=== PATIENT | female | born 1965 ===

== ENCOUNTER 2016-08-17 11:12 | Emergency (ER) | payer MEDICARE, MEDICAID ==
[2016-08-17 11:12] VITALS: BMI 30.2
[2016-08-17 11:18] VITALS: BP 127/84; PULSE 107; RESP 18; TEMP 98.2; O2SAT 100
--- NOTE | 2016-08-17 12:06 | C.PDOC ---
History Of Present Illness 51-year-old female, presents to the emergency department with complaints of left foot pain and swelling just prior to arrival, due to something heavy falling on it. no numbness/weakness Time Seen by Provider: 08/17/16 11:32 Chief Complaint (Nursing): Lower Extremity Problem/Injury History Per: Patient History/Exam Limitations: no limitations Past Medical History Reviewed: Historical Data, Nursing Documentation, Vital Signs Vital Signs: Last Vital Signs Temp 98.2 F 08/17/16 11:15 Pulse 107 H 08/17/16 11:15 Resp 18 08/17/16 11:15 BP 127/84 08/17/16 11:15 Pulse Ox 100 08/17/16 12:12 - Medical History PMH: Anemia, Anxiety, Back Problems, Bipolar Disorder, Depression, Hypercholesterolemia, Post Traumatic Stress Disorder - [facility] Procedures ANESTH INJECT-SPIN CANAL (05/28/13) INJECT STEROID (05/28/13) LUMBOSAC SPINE X-RAY NEC (01/01/13) PHYSICAL THERAPY NEC (12/05/14) SPINAL CANAL INJECT NEC (05/28/13) Family History: States: No Known Family Hx, Diabetes - Social History Hx Tobacco Use: Yes Hx Alcohol Use: No Hx Substance Use: No - Immunization History Hx Tetanus Toxoid Vaccination: No Hx Influenza Vaccination: Yes Hx Pneumococcal Vaccination: No Review Of Systems Except As Marked, All Systems Reviewed And Found Negative. Gastrointestinal: Negative for: Vomiting Musculoskeletal: Positive for: Foot Pain Neurological: Negative for: Weakness, Numbness Physical Exam - Physical Exam Appears: Non-toxic, No Acute Distress Skin: Warm, Dry, No Rash Extremity: Normal ROM, Tenderness, No Calf Tenderness, Capillary Refill (<2 seconds), No Deformity, Swelling, Other (swelling and echymosis to dorsal aspect of left foot) Neurological/Psych: Oriented x3 ED Course And Treatment O2 Sat by Pulse Oximetry: 100 - Other Rad l foot X-Ray: Interpreted by Me (neg) Medical Decision Making Medical Decision Making: Pt given crutches and dc for outpatient f/u with ortho Disposition Counseled Patient/Family Regarding: Studies Performed, Diagnosis, Need For Followup, Rx Given - Disposition Referrals: [facility] [Outside] [facility] at [facility] [Outside] Podiatry Clinic [Outside] Disposition: HOME/ ROUTINE Disposition Time: 12:11 Condition: IMPROVED Prescriptions: Acetaminophen [Tylenol Extra Strength] 2 tab PO Q6 #30 tablet Naproxen 500 mg PO BID #30 tab Instructions: Contusion in Adults (ED) - Clinical Impression Clinical Impression: Foot contusion - Scribe Statement The provider has reviewed the documentation as recorded by the Scribe Provider Attestation: Irma Zabala All medical record entries made by the Scribe were at my direction and personally dictated by me. I have reviewed the chart and agree that the record accurately reflects my personal performance of the history, physical exam, medical decision making, and the department course for this patient. I have also personally directed, reviewed, and agree with the discharge instructions and disposition. Orthopedic Care - Ambulation Aids Ambulation Aids: Adult Crutches
--- NOTE | 2016-08-17 15:00 | RAD ---
PROCEDURE: Left Foot Radiographs. HISTORY: TRAUMA COMPARISON: None. FINDINGS: BONES: Plantar and Achilles Tendon insertion calcaneal spurs. No fracture. JOINTS: Normal. SOFT TISSUES: Normal. OTHER FINDINGS: None. IMPRESSION: No acute findings related to/accounting for the clinical presentation. Concordant results with the preliminary interpretation rendered by the emergency department physician procedure.
== END 2016-08-17 12:40 | disposition home or self-care (01) ==
LOC: C.ER 11:12
DX: S90.32XA Contusion of left foot, initial encounter (principal); W20.8XXA Other cause of strike by thrown, projected or falling object, initial encounter; Z72.0 Tobacco use
CPT/HCPCS: 73630; 97116; 97161; 99283; G8978; G8979; G8980

== ENCOUNTER 2016-10-14 12:21 | Emergency (ER) | payer MEDICARE, MEDICAID ==
[2016-10-14 12:35] VITALS: BMI 31.2
[2016-10-14] MEDS ORDERED: Sodium Chloride 0.9% 1,000 ML IV ONE (13:44)
[2016-10-14 14:01] LABS: BASO % 0.6 % (0.0-2.0); EOS # 0.1 K/uL (0.0-0.7); EOS % 1.2 % (0.0-4.0); HEMOGLOBIN 11.3 g/dL (11.0-16.0); LYMPH # 2.3 K/uL (1.0-4.3); LYMPH % 30.9 % (20.0-40.0); MEAN CELL VOLUME 79.6 fL (81.0-99.0); MEAN CORPUSCULAR HEMOGLOBIN 25.8 pg (27.0-31.0); MEAN CORPUSCULAR HGB CONC 32.5 g/dL (33.0-37.0); MEAN PLATELET VOLUME 8.4 fL (7.2-11.7); MONO # 0.5 K/uL (0.0-0.8); MONO % 7.1 % (0.0-10.0); NEUT # 4.4 K/uL (1.8-7.0); NEUT % 60.2 % (50.0-75.0); RBC 4.36 Mil/uL (3.80-5.20); WHITE BLOOD COUNT 7.4 K/uL (4.8-10.8)
--- NOTE | 2016-10-14 14:01 | C.PDOC ---
History Of Present Illness Pt is a 51 y/o female pmhx bipolar, depression, diabetes presents to ED for possible medication reaction. Home health aide was visiting her today when she noticed patient started to have slurred speech and dizziness after taking respiradol, she then called EMS. Pt currently nonverbal, history limited. It's possible that the patient took an extra dose of respiradol unintentionally. Family member is at bedside and says that the patient has never been like this before. Time Seen by Provider: 10/14/16 13:21 Chief Complaint (Nursing): Dizziness/Lightheaded History Per: Patient History/Exam Limitations: no limitations Onset/Duration Of Symptoms: Hrs Current Symptoms Are (Timing): Still Present Seizure Or Post-ictal Symptoms: None Possible Causative Factor(s): New Medications Fall Associated With With Symptoms: No Severity: Moderate Recent travel outside of the [place]: No Additional History Per: [facility] (health aide) - Symptoms Of CVA Associated Symptoms: Impaired Speech Recent Head Trauma: No Past Medical History Reviewed: Historical Data, Nursing Documentation, Vital Signs Vital Signs: Last Vital Signs Temp 97.4 F L 10/14/16 17:32 Pulse 60 10/14/16 17:32 Resp 20 10/14/16 17:32 BP 127/87 10/14/16 17:32 Pulse Ox 96 10/14/16 17:32 - Medical History PMH: Anemia, Anxiety, Back Problems, Bipolar Disorder, Depression, Hypercholesterolemia, Post Traumatic Stress Disorder - [facility] Procedures ANESTH INJECT-SPIN CANAL (05/28/13) INJECT STEROID (05/28/13) LUMBOSAC SPINE X-RAY NEC (01/01/13) PHYSICAL THERAPY NEC (12/05/14) SPINAL CANAL INJECT NEC (05/28/13) Family History: States: Unknown Family Hx, Diabetes - Social History Hx Tobacco Use: Yes Hx Alcohol Use: No Hx Substance Use: No - Immunization History Hx Tetanus Toxoid Vaccination: No Hx Influenza Vaccination: Yes Hx Pneumococcal Vaccination: No Review Of Systems Review Of Systems: ROS cannot be obtained secondary to pt's inabilty to answer questions. Neurological: Positive for: Change in Speech, Dizziness Physical Exam - Physical Exam Appears: No Acute Distress, Other (unresponsive to verbal stimuli, responds to painful stimuli) Skin: Warm, Dry, No Rash Head: Atraumatic, Normacephalic Eye(s): bilateral: PERRL (at 2 mm each), Other (pupils pinpoint bilaterally) Nose: Normal Oral Mucosa: Moist Tongue: Normal Appearing Lips: Normal Appearing Teeth: Normal Dentition Throat: Normal, No Erythema Neck: Normal, Normal ROM, Supple Chest: Symmetrical Cardiovascular: Rhythm Regular, No Murmur Respiratory: Normal Breath Sounds, No Rales, No Rhonchi, No Wheezing Gastrointestinal/Abdominal: Normal Exam, Soft, No Tenderness Rectal: Deferred Back: Normal Inspection Extremity: Normal ROM, No Pedal Edema Extremity: Bilateral: Atraumatic Pulses: Left Radial: Normal, Right Radial: Normal Neurological/Psych: Other (Only responsive to tactile stimuli, gag reflex intact , No focal findings) ED Course And Treatment - Laboratory Results Result Diagrams: 10/14/16 13:52 10/14/16 13:52 O2 Sat by Pulse Oximetry: 95 (room air) Pulse Ox Interpretation: Normal Medical Decision Making Medical Decision Making: Initial Impression: Unresponsiveness Differential diagnosis includes but is not limited to: medication overdose, space occupying lesion of brain Initial Plan: CT head, labs, UA, observe Progress notes: After a few hrs, patient woke up. Pt is now walking around the ED and looks much better. Pt may have unintentionally taken an extra risperadol. Will d/c home. Disposition - Disposition Referrals: [facility] Ph[facility] [Outside] Disposition: HOME/ ROUTINE Disposition Time: 17:21 Condition: IMPROVED Additional Instructions: Ms. Kirk, thank you for letting us take care of you today. Return to the ER if any problems. You probably took an extra dose of your medication today and that caused you to be drowsy. Be careful not to double dose your medications. Follow up with your primary care physician or psychiatrist next week. Instructions: Adverse Drug Reaction (ED) Forms: General Discharge Instructions, [employer] (Pashto) Print Language: GERMAN - POA Present On Arrival: None - Clinical Impression Clinical Impression: Medication reaction - Scribe Statement The provider has reviewed the documentation as recorded by the Abelardo Carpenter Provider Attestation: All medical record entries made by the Scribe were at my direction and personally dictated by me. I have reviewed the chart and agree that the record accurately reflects my personal performance of the history, physical exam, medical decision making, and the department course for this patient. I have also personally directed, reviewed, and agree with the discharge instructions and disposition.
[2016-10-14 14:31] LABS: ALBUMIN 3.9 g/dL (3.5-5.0)
[2016-10-14 14:34] LABS: ALB/GLOB RATIO 1.4 (1.0-2.1); ALT/SGPT 31 U/L (9-52); AST/SGOT 23 U/L (14-36); BLOOD UREA NITROGEN 14 mg/dL (7-17); GFR AFRICAN-AMERICAN > 60; GFR NON-AFRICAN AMERICAN > 60
[2016-10-14 14:35] LABS: CALCIUM 8.6 mg/dl (8.6-10.4)
[2016-10-14 15:01] LABS: HCG,QUALITATIVE URINE NEGATIVE (NEGATIVE)
[2016-10-14 15:10] LABS: SQUAMOUS EPITHIAL < 1 /hpf (0-5); URINE BILIRUBIN NEGATIVE (NEGATIVE); URINE BLOOD NEGATIVE (NEGATIVE); URINE CLARITY Clear (Clear); URINE COLOR Straw (YELLOW); URINE GLUCOSE (UA) NORMAL (Normal); URINE LEUKOCYTE ESTERASE NEG Leu/uL (Negative); URINE NITRATE NEGATIVE (NEGATIVE); URINE PROTEIN NEGATIVE (NEGATIVE); URINE UROBILINOGEN NORMAL mg/dL (0.2-1.0)
[2016-10-14 15:18] LABS: BARBITURATES, UR NEGATIVE (NEGATIVE)
[2016-10-14 15:20] LABS: OPIATES, UR NEGATIVE (NEGATIVE)
[2016-10-14 15:21] LABS: PHENCYCLIDINE, UR NEGATIVE (NEGATIVE)
--- NOTE | 2016-10-14 15:32 | CT ---
PROCEDURE: CT HEAD WITHOUT CONTRAST. HISTORY: Altered mental status COMPARISON: Noncontrast head CT performed 05/12/16 TECHNIQUE: Axial computed tomography images were obtained through the head/brain without intravenous contrast. Radiation dose: Total exam DLP = 890.35 mGy-cm. This CT exam was performed using one or more of the following dose reduction techniques: Automated exposure control, adjustment of the mA and/or kV according to patient size, and/or use of iterative reconstruction technique. FINDINGS: HEMORRHAGE: No intracranial hemorrhage. BRAIN: No mass effect or edema. The lyman-white matter differentiation appears intact. Please note that MRI with diffusion imaging is more sensitive in the detection of acute ischemic event. VENTRICLES: No hydrocephalus. CALVARIUM: Unremarkable. PARANASAL SINUSES: Unremarkable as visualized. No significant inflammatory changes. MASTOID AIR CELLS: Unremarkable as visualized. No inflammatory changes. OTHER FINDINGS: None. IMPRESSION: No acute intracranial pathology identified.
[2016-10-14 15:42] LABS: BENZODIAZEPINES, UR POSITIVE (NEGATIVE)
[2016-10-14] MEDS ORDERED: Naloxone 0.4 mg/ml Inj (Adult) IV ONE (16:03)
[2016-10-14 17:32] VITALS: BP 127/87; PULSE 60; RESP 20; TEMP 97.4
--- NOTE | 2016-10-15 12:56 | CARD ---
APPROVED REPORT EKG Measurement Heart [id number] <Conclusion> Normal sinus rhythm Possible Septal infarct, age undetermined Abnormal ECG
[2016-10-16 13:42] VITALS: O2SAT 95
== END 2016-10-14 17:32 | disposition home or self-care (01) ==
LOC: C.ER 12:21
DX: R42 Dizziness and giddiness (principal); T43.595A Adverse effect of other antipsychotics and neuroleptics, initial encounter
CPT/HCPCS: 70450; 80053; 81001; 82948; 84703; 85025; 93005; 99285; G0480; J7040

== ENCOUNTER 2016-10-22 19:56 | Emergency (ER) | payer MEDICARE, MEDICAID ==
[2016-10-22 19:57] VITALS: BMI 31.2
[2016-10-22 20:11] VITALS: BP 131/83; PULSE 72; RESP 16; TEMP 97.8; O2SAT 100
--- NOTE | 2016-10-22 20:34 | C.PDOC ---
History Of Present Illness 51 y/o female presents to the ED with complaints of itchy rash to left arm x1 week, has since spread. Pt did not take any medications. Pt admits to being outside gardening prior to onset. Pt denies fever, chills, throat swelling, SOB , or any other complaints. Time Seen by Provider: 10/22/16 20:23 Chief Complaint (Nursing): Abnormal Skin Integrity History Per: Patient History/Exam Limitations: no limitations Onset/Duration Of Symptoms: Days Current Symptoms Are (Timing): Still Present Quality Of Symptoms: Itching Severity: Mild Recent travel outside of the [place]: No Past Medical History Reviewed: Historical Data, Nursing Documentation, Vital Signs Vital Signs: Last Vital Signs Temp 97.8 F 10/22/16 20:07 Pulse 72 10/22/16 20:07 Resp 16 10/22/16 20:07 BP 131/83 10/22/16 20:07 Pulse Ox 100 10/22/16 20:34 - Medical History PMH: Anemia, Anxiety, Back Problems, Bipolar Disorder, Depression, Hypercholesterolemia, Post Traumatic Stress Disorder - [facility] Procedures ANESTH INJECT-SPIN CANAL (05/28/13) INJECT STEROID (05/28/13) LUMBOSAC SPINE X-RAY NEC (01/01/13) PHYSICAL THERAPY NEC (12/05/14) SPINAL CANAL INJECT NEC (05/28/13) Family History: States: Unknown Family Hx, Diabetes - Social History Hx Tobacco Use: Yes Hx Alcohol Use: Yes Hx Substance Use: No - Immunization History Hx Tetanus Toxoid Vaccination: No Hx Influenza Vaccination: Yes Hx Pneumococcal Vaccination: No Review Of Systems Constitutional: Negative for: Fever, Chills ENT: Negative for: Throat Swelling Respiratory: Negative for: Shortness of Breath Skin: Positive for: Rash (itchy rash to left arm) Physical Exam - Physical Exam Appears: Non-toxic, No Acute Distress Skin: Warm, Dry, Rash (erythematous papular rash in linear formation to left arm. few lesions on the neck) Head: Atraumatic, Normacephalic Throat: Normal, No Erythema Neck: Normal ROM, Supple Chest: Symmetrical Cardiovascular: Rhythm Regular Respiratory: Normal Breath Sounds, No Rales, No Rhonchi, No Wheezing Extremity: Normal ROM, No Swelling Neurological/Psych: Oriented x3, Normal Speech, Normal Cognition ED Course And Treatment O2 Sat by Pulse Oximetry: 100 (room air) Pulse Ox Interpretation: Normal Medical Decision Making Medical Decision Making: Patient with rash that appears consistent with poison gayatri. Prednisone PO given. Rx given Disposition Counseled Patient/Family Regarding: Diagnosis, Need For Followup, Rx Given - Disposition Disposition: HOME/ ROUTINE Disposition Time: 20:31 Condition: GOOD Additional Instructions: Take prednisone daily Apply lotion to area for itching and drying out the rash Prescriptions: Prednisone 50 mg PO DAILY #5 tablet Witch Jamilah 472 ml TP BID #1 solution Instructions: Poison Gayatri (ED) Forms: [employer] (Kuwaiti) - POA Present On Arrival: None - Clinical Impression Clinical Impression: Contact dermatitis due to poison gayatri - PA / [employer]2EE CONSULTANT / Resident Statement MD/DO has reviewed & agrees with the documentation as recorded. - Scribe Statement The provider has reviewed the documentation as recorded by the Angelibbrody Carpenter All medical record entries made by the Angelibbrody were at my direction and personally dictated by me. I have reviewed the chart and agree that the record accurately reflects my personal performance of the history, physical exam, medical decision making, and the department course for this patient. I have also personally directed, reviewed, and agree with the discharge instructions and disposition.
== END 2016-10-22 21:00 | disposition home or self-care (01) ==
LOC: C.ER 19:56
DX: L23.7 Allergic contact dermatitis due to plants, except food (principal)

== ENCOUNTER 2017-01-21 09:50 | Emergency (ER) | payer MEDICARE, MEDICAID ==
[2017-01-21 09:51] VITALS: BMI 31.2
--- NOTE | 2017-01-21 10:59 | C.PDOC ---
History Of Present Illness 51 y/o female presents to the ED complaining of bilateral arm pain. She states that 2 weeks ago she was outside feeding cats in her backyard, carrying cat food , and fell forward hitting both forearms on the ground. Patient did not seek medical attention at that time., and she denies head injury or LOC. She has taken Naprosyn but states pain persists. Time Seen by Provider: 01/21/17 10:04 Chief Complaint (Nursing): Upper Extremity Problem/Injury History Per: Patient History/Exam Limitations: no limitations Onset/Duration Of Symptoms: Days (x 2 weeks) Current Symptoms Are (Timing): Still Present Quality: "Pain" Severity: Mild Past Medical History Reviewed: Historical Data, Nursing Documentation, Vital Signs Vital Signs: Last Vital Signs Temp 97.9 F 01/21/17 11:15 Pulse 73 01/21/17 11:15 Resp 17 01/21/17 11:15 BP 143/102 H 01/21/17 11:15 Pulse Ox 100 01/21/17 11:28 - Medical History PMH: Anemia, Anxiety, Back Problems, Bipolar Disorder, Depression, Hypercholesterolemia, Post Traumatic Stress Disorder - [facility] Procedures ANESTH INJECT-SPIN CANAL (05/28/13) INJECT STEROID (05/28/13) LUMBOSAC SPINE X-RAY NEC (01/01/13) PHYSICAL THERAPY NEC (12/05/14) SPINAL CANAL INJECT NEC (05/28/13) Family History: States: No Known Family Hx, Diabetes - Social History Hx Tobacco Use: Yes Hx Alcohol Use: Yes Hx Substance Use: No - Immunization History Hx Tetanus Toxoid Vaccination: No Hx Influenza Vaccination: Yes Hx Pneumococcal Vaccination: No Review Of Systems Except As Marked, All Systems Reviewed And Found Negative. Constitutional: Negative for: Other (Head trauma or loss of consciousness) Cardiovascular: Negative for: Chest Pain, Palpitations Respiratory: Negative for: Shortness of Breath Gastrointestinal: Negative for: Nausea, Vomiting, Abdominal Pain, Diarrhea Musculoskeletal: Positive for: Arm Pain (to bilateral forearms) Neurological: Negative for: Weakness, Numbness Physical Exam - Physical Exam Appears: Well, Non-toxic, No Acute Distress Skin: Normal Color, Warm, Dry Head: Atraumatic, Normacephalic, No Abrasion Eye(s): bilateral: Normal Inspection Oral Mucosa: Moist Neck: Normal, Normal ROM, No Midline Cervical Tenderness, No Paracervical Tenderness, No Step Off Deformity, Supple Chest: Symmetrical Cardiovascular: Rhythm Regular Respiratory: Normal Breath Sounds, No Rales, No Rhonchi Gastrointestinal/Abdominal: Normal Exam, Bowel Sounds, Soft, No Tenderness Back: Normal Inspection, No Vertebral Tenderness Extremity: Normal ROM (with full ROM at digits, wrists, and elbows), Tenderness (Mild tenderness to palpation along B/L forearms (lateral radius) ), Capillary Refill (< 2 sec all digits ), No Deformity (and abrasions), No Swelling (and erythema) Extremity: Bilateral: Normal Color And Temperature, Normal ROM Pulses: Left Radial: Normal, Right Radial: Normal Neurological/Psych: Oriented x3, Normal Motor, Normal Sensation Gait: Steady ED Course And Treatment O2 Sat by Pulse Oximetry: 100 (RA) Pulse Ox Interpretation: Normal - Other Rad X-Ray Left Forearm X-Ray: Interpreted by Me, Viewed By Me Interpretation: No fractures or dislocations Progress Note: Patient given PO Tylenol. Xray of left forearms ordered and reviewed. Reevaluation Time: 11:15 Reassessment Condition: Improved (Patient reassessed, pain has improved and she is resting comfortably. Xray (-) for fracture/dislocation. Patient given Rxs for tylenol, naprosyn and she was instructed to follow up with orthopedics within 1 week. Patient understands she should return to ED if symptoms worsen.) Disposition Counseled Patient/Family Regarding: Studies Performed, Diagnosis, Need For Followup, Rx Given - Disposition Referrals: [facility] [Outside] [facility] [Outside] Philip Cadet III, MD [Staff Provider] - Disposition: HOME/ ROUTINE Disposition Time: 11:15 Condition: STABLE Additional Instructions: SEGUIMIENTO CON ORTOPEDIA DENTRO DE 1 SEMANA USE MEDICAMENTOS SEGN SEA NECESARIO PARA DOLOR REGRESE AL AYDEE DE EMERGENCIA SI LOS SNTOMAS EMPEORAN Prescriptions: Acetaminophen [Tylenol 325mg tab] 650 mg PO Q6 PRN #30 tab PRN Reason: pain/fever Naproxen [Naprosyn] 1 tab PO BID PRN #25 tab PRN Reason: Pain Instructions: Arm Pain (ED) Forms: [employer] (Georgian) Print Language: ERITREAN - POA Present On Arrival: Falls Or Trauma - Clinical Impression Clinical Impression: Forearm sprain - Scribe Statement The provider has reviewed the documentation as recorded by the Scribbrody Virgen All medical record entries made by the Scribe were at my direction and personally dictated by me. I have reviewed the chart and agree that the record accurately reflects my personal performance of the history, physical exam, medical decision making, and the department course for this patient. I have also personally directed, reviewed, and agree with the discharge instructions and disposition.
[2017-01-21 11:16] VITALS: BP 143/102; PULSE 73; RESP 17; TEMP 97.9
[2017-01-21 11:21] VITALS: O2SAT 100
--- NOTE | 2017-01-21 12:48 | RAD ---
PROCEDURE: Bilateral forearms dated 01/21/2017 HISTORY: B/L forearms r/o fx, pain after fall COMPARISON: No prior study available for comparison TECHNIQUE: AP and lateral views of the right and left forearms performed FINDINGS: No evidence of acute displaced fracture nor dislocation. The osseous structures intact. There are no cortical destructive changes. Soft tissues appear grossly unremarkable without evidence of subcutaneous air or opaque foreign bodies. IMPRESSION: No acute fracture seen. .
== END 2017-01-21 11:22 | disposition home or self-care (01) ==
LOC: C.ER 09:50
DX: S63.592A Other specified sprain of left wrist, initial encounter (principal); S63.591A Other specified sprain of right wrist, initial encounter; W18.30XA Fall on same level, unspecified, initial encounter; Y93.89 Activity, other specified; Y92.007 Garden or yard of unspecified non-institutional (private) residence as the place of occurrence of the external cause

== ENCOUNTER 2017-03-05 09:07 | Emergency (ER) | payer MEDICARE, MEDICAID ==
[2017-03-05 09:07] VITALS: BMI 31.2
[2017-03-05 09:36] VITALS: RESP 18; TEMP 97.8; O2SAT 98
--- NOTE | 2017-03-05 09:50 | C.PDOC ---
History Of Present Illness Patient is a pleasant right-hand dominant 51 yr old female who states that she was playing with her cat yesterday evening and around 6 pm yesterday she banged her right hand on a cabinet. When she banged her hand, she also bent back her right ring finer a little. Pt c/o right hand pain. She took Naprosyn yesterday and it did not help much. No radiation of the pain. No other complaints at this time. PMD: Dr. Nichols (?spelling) . Time Seen by Provider: 03/05/17 09:26 Chief Complaint (Nursing): Finger,Hand,&Wrist History Per: Patient History/Exam Limitations: no limitations Past Medical History Reviewed: Historical Data, Nursing Documentation, Vital Signs Vital Signs: Last Vital Signs Temp 97.8 F 03/05/17 09:18 Pulse 67 03/05/17 10:11 Resp 18 03/05/17 10:11 BP 132/84 03/05/17 10:11 Pulse Ox 98 03/05/17 12:16 - Medical History PMH: Anemia, Anxiety, Back Problems, Bipolar Disorder, Depression, Hypercholesterolemia, Post Traumatic Stress Disorder - [facility] Procedures ANESTH INJECT-SPIN CANAL (05/28/13) INJECT STEROID (05/28/13) LUMBOSAC SPINE X-RAY NEC (01/01/13) PHYSICAL THERAPY NEC (12/05/14) SPINAL CANAL INJECT NEC (05/28/13) Family History: States: CAD, Diabetes - Social History Hx Tobacco Use: No Hx Alcohol Use: Yes Hx Substance Use: No - Immunization History Hx Tetanus Toxoid Vaccination: No Hx Influenza Vaccination: Yes Hx Pneumococcal Vaccination: No Review Of Systems Musculoskeletal: Positive for: Hand Pain Neurological: Negative for: Weakness, Numbness Physical Exam - Physical Exam Appears: Well, Non-toxic, No Acute Distress Skin: Normal Color, Warm, Dry Head: Atraumatic Nose: Normal Chest: Symmetrical Cardiovascular: Rhythm Regular Respiratory: Normal Breath Sounds, No Rales, No Rhonchi, No Wheezing Extremity: Tenderness (right hand near right 4th MCP), Swelling (right hand especially at 4th right MCP), Other (ROM intact to right hand and right fingers ; no neurovascular deficits) ED Course And Treatment O2 Sat by Pulse Oximetry: 98 - Other Rad hand X-Ray: Interpreted by Me Interpretation: No fracture Progress Note: Gordon bandage placed by me. Pt feels better. Will d/c home. Medical Decision Making Medical Decision Making: Initial Impression: Right hand trauma. Differential diagnosis includes but is not limited to fx, contusion Initial plan: Will get xrays. Progress note(s): 10:00 AM - no fx. I placed GORDON bandage to hand. Will d/c and have pt follow up with Dr. Wright . Disposition Counseled Patient/Family Regarding: Studies Performed, Diagnosis, Need For Followup, Rx Given - Disposition Referrals: Sima Vitale MD [Staff Provider] - Disposition: HOME/ ROUTINE Disposition Time: 09:53 Condition: STABLE Additional Instructions: Ms. Kirk, thank you for letting us take care of you today. Return to the ER if your symptoms worsen, or if any problems. Take the medication listed below as prescribed. We want to make sure that you are getting better so please follow up with our orthopedic doctor (Dr. Wright)--call the phone number listed below to make an appointment. Prescriptions: Ibuprofen [Motrin] 1 tab PO TID PRN #30 tab PRN Reason: Pain, Moderate (4-7) Instructions: Contusion in Adults (DC), Hematoma (ED) Forms: [email or web address] (Tajik) Print Language: MALTESE - POA Present On Arrival: None - Clinical Impression Clinical Impression: Contusion of hand, right
[2017-03-05 10:12] VITALS: BP 132/84; PULSE 67
--- NOTE | 2017-03-05 10:50 | RAD ---
PROCEDURE: Right Hand Radiographs. HISTORY: Right hand trauma yesterday evening COMPARISON: None. FINDINGS: BONES: Normal. No fracture. JOINTS: Normal. No osteoarthritic changes. SOFT TISSUES: Normal. OTHER FINDINGS: None. IMPRESSION: No evidence of acute fracture or dislocation.
== END 2017-03-05 10:12 | disposition home or self-care (01) ==
LOC: C.ER 09:07
DX: S60.221A Contusion of right hand, initial encounter (principal); W22.03XA Walked into furniture, initial encounter; Y92.009 Unspecified place in unspecified non-institutional (private) residence as the place of occurrence of the external cause

== ENCOUNTER 2017-12-13 08:00 | Emergency (ER) | payer MEDICARE, MEDICAID ==
[2017-12-13 08:07] VITALS: BMI 32.9
[2017-12-13 08:08] VITALS: BP 147/89; PULSE 91; RESP 17; TEMP 99.2; O2SAT 96
--- NOTE | 2017-12-13 08:40 | C.PDOC ---
History Of Present Illness 52 y/o female presents to the ER complaining of generalized rash which been present since she woke up in the morning today. Patient states that she is not sure about the source of the rash.Denies using new foods, detergents, soaps. Denies having fever, chills, and SOB. Time Seen by Provider: 12/13/17 08:10 Chief Complaint (Nursing): Abnormal Skin Integrity History Per: Patient History/Exam Limitations: no limitations Onset/Duration Of Symptoms: Hrs Current Symptoms Are (Timing): Still Present Severity: Moderate Past Medical History Reviewed: Historical Data, Nursing Documentation, Vital Signs Vital Signs: Last Vital Signs Temp 99.2 F 12/13/17 08:04 Pulse 91 H 12/13/17 08:04 Resp 17 12/13/17 08:04 BP 147/89 12/13/17 08:04 Pulse Ox 96 12/13/17 09:10 - Medical History PMH: Anemia, Anxiety, Back Problems, Bipolar Disorder, Depression, Hypercholesterolemia, Post Traumatic Stress Disorder Surgical History: No Surg Hx - [facility] Procedures ANESTH INJECT-SPIN CANAL (05/28/13) INJECT STEROID (05/28/13) LUMBOSAC SPINE X-RAY NEC (01/01/13) PHYSICAL THERAPY NEC (12/05/14) SPINAL CANAL INJECT NEC (05/28/13) Family History: States: CAD, Diabetes - Social History Hx Tobacco Use: No Hx Alcohol Use: Yes Hx Substance Use: No - Immunization History Hx Tetanus Toxoid Vaccination: No Hx Influenza Vaccination: Yes (2017) Hx Pneumococcal Vaccination: No Review Of Systems Constitutional: Negative for: Fever, Chills, Malaise Eyes: Negative for: Vision Change, Eyelid Inflammation ENT: Negative for: Nose Congestion, Throat Pain, Throat Swelling Cardiovascular: Negative for: Palpitations Respiratory: Negative for: Shortness of Breath, Wheezing Skin: Positive for: Rash Physical Exam - Physical Exam Appears: Non-toxic, No Acute Distress Skin: Normal Color, Warm, Dry, Rash (urticaria to upper extremities and torso, excludes the face ) Head: Atraumatic, Normacephalic Eye(s): bilateral: Normal Inspection Nose: Normal, No Flaring, No Discharge Oral Mucosa: Moist Tongue: Normal Appearing, No Swelling Lips: Normal Appearing, No Swelling Throat: Normal, No Erythema, No Drooling, No Mass Neck: Supple Chest: Symmetrical Cardiovascular: Rhythm Regular, No Murmur Respiratory: Normal Breath Sounds, No Rales, No Rhonchi, No Wheezing Extremity: Bilateral: Atraumatic, Normal ROM Neurological/Psych: Oriented x3, Normal Speech ED Course And Treatment O2 Sat by Pulse Oximetry: 96 (RA) Pulse Ox Interpretation: Normal Medical Decision Making Medical Decision Making: Impression: Urticaria Plan: * Benadryl PO Progress: Patient has been discharged and instructed 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 Disposition Counseled Patient/Family Regarding: Diagnosis, Need For Followup, Rx Given - Disposition Referrals: Celia Abbasi MD [Medical Doctor] - Disposition: HOME/ ROUTINE Disposition Time: 08:38 Condition: STABLE Additional Instructions: Take Benadryl for itching and apply cream Rash can take 1 week to resolve Follow up with your doctor or composition tile layer Prescriptions: DiphenhydrAMINE [Benadryl] 25 mg PO Q4 PRN #30 cap PRN Reason: Rash Hydrocortisone [Cortisone] 60 gm TP BID #1 cream..g. Instructions: Nahid (DC) Forms: [employer] (Liberian) - POA Present On Arrival: None - Clinical Impression Clinical Impression: Urticaria
== END 2017-12-13 09:00 | disposition home or self-care (01) ==
LOC: C.ER 08:00
DX: L50.9 Urticaria, unspecified (principal); E78.00 Pure hypercholesterolemia, unspecified

== ENCOUNTER 2018-08-18 20:14 | Emergency (ER) | payer MEDICARE, MEDICAID | END 2018-08-18 22:02 | disposition home or self-care (01) | LOC: C.ER 20:14 ==